=== PATIENT | male | born 1965 | race Caucasian/White ===

== ENCOUNTER 2018-10-08 01:49 | Emergency (ER) | payer SELFPAY ==
[~2018-10-08] VITALS: Ht 175.3 cm; Wt 99.8 kg
--- OUTSIDE RECORDS SUMMARY | ~2018-10-08 | XMS | Clinical Summary ---
Demographics + + + | Address | [address] | | | [place] [address] | + + + | Home Phone | | + + + | Preferred Language | Unknown | + + + | Marital Status | Single | + + + | Spiritism Affiliation | 1013 | + + + | Race | Unknown | + + + | Ethnic Group | Unknown | + + + Author + + + | Author | [facility] | + + + | Organization | [facility] | + + + | Address | Unknown | + + + | Phone | Unavailable | + + + Support + + + + + | Name | Relationship | Address | Phone | + + + + + | Yolis Grey | ECON | [address] | | | | | [place] [address] | | + + + + + Care Team Providers + +------+ + | Care Public Services Librarian Name | Role | Phone | + +------+ + | Amador Delgado DO | PP | | + +------+ + Allergies No Known Allergies Current Medications + + +---------+---------+------+------+-------+ | Prescription | Sig. | Disp. | Refills | Star | End | Statu | | | | | | t | Date | s | | | | | | Date | | | + + +---------+---------+------+------+-------+ | metFORMIN | Take 500 mg by mouth | | | | | Activ | | (GLUCOPHAGE) 1000 MG | daily with | | | | | e | | tablet | breakfast. | | | | | | + + +---------+---------+------+------+-------+ | omeprazole | Take 20 mg by mouth | | | | | Activ | | (PRILOSEC) 20 MG | every morning before | | | | | e | | capsuleIndications: | breakfast. | | | | | | | Heartburn | | | | | | | + + +---------+---------+------+------+-------+ | aspirin 81 MG | Take 81 mg by mouth | | | | | Activ | | tablet | daily. | | | | | e | + + +---------+---------+------+------+-------+ | pioglitazone | Take 15 mg by mouth | | | | | Activ | | (ACTOS) 15 MG tablet | daily. | | | | | e | + + +---------+---------+------+------+-------+ | nitroGLYCERIN | Place 1 tablet under | 25 | 3 | 01/0 | | Activ | | (NITROSTAT) 0.4 MG | the tongue every 5 | tablet | | 8/20 | | e | | SL tablet | (five) minutes as | | | 18 | | | | | needed for Chest | | | | | | | | pain. | | | | | | + + +---------+---------+------+------+-------+ | metoprolol | Take 1 tablet by | 30 | 11 | 02/0 | | Activ | | (TOPROL-XL) 25 MG 24 | mouth daily. | tablet | | 5/20 | | e | | hr tablet | | | | 18 | | | + + +---------+---------+------+------+-------+ | furosemide (LASIX) | Take 1 tablet by | 30 | 11 | 02/0 | | Activ | | 20 MG tablet | mouth daily. | tablet | | 5/20 | | e | | | | | | 18 | | | + + +---------+---------+------+------+-------+ | potassium chloride | Take 1 capsule by | 30 | 11 | 02/0 | | Activ | | (MICRO-K) 10 MEQ CR | mouth daily. | capsule | | 5/20 | | e | | capsule | | | | 18 | | | + + +---------+---------+------+------+-------+ Active Problems + + + | Problem | Noted Date | + + + | OAB (overactive bladder) | 10/10/2015 | + + + | Urethral stricture | 10/10/2015 | + + + | UTI (urinary tract infection) | 09/06/2015 | + + + | Dysuria | 09/06/2015 | + + + | Gross hematuria | 06/18/2015 | + + + | CAD (coronary artery disease) | 11/16/2014 | + + + + + | Last Assessment & Plan: CAD s/p PCI to [facility] reports chest | | discomfort- can be related to poorly controlled HTN vs | | progression of CADBP - not well controlled- related to non | | compliance, OSAHe claims compliance to ASA, Plavix, StatinHe is | | having difficulty to take PM pills because of sleep patternHis | | Lisinopril/HCTZ was stopped by Dr. Jalloh??BP now not well | | controlled- only on Coreg 12.5mg [id number] add Amlodipine 5mg | | dailyHe will continue to check his BP at home and will | | reportDiscussed importance of weight loss, diet, exercise, | | lifestyle changesStopped ETOHWill do Stress MPI and echoF/u after | | testsStressed importance of medication compliance- having alarm | | to remind He is also now reporting blood in urine for which he | | might need urology work up- he will see urology in | | advised him to continue ASA, Plavix for now and not miss any | | dosesReturn after stress and echo. | |Return after stress and echo. | | | + + + + + | Chest pain | 09/14/2014 | + + + + + | Last Assessment & Plan: Angina- chest pressure, dyspnea on | | exertion With risk factors- HTN, HLD, Obesity, Family history of | | Early CAD- aneurysm- father in 40sBP control improvedBP numbers | | from home shows improved numbersDiscussed with him the management | | options including medical management- role of stress testing, | | coronary angiogram- he opts for coronary angiogram after | | considering- risks, benefits and alternatives- he verbally | | expressed understanding of the risks and procedure- Because of | | his significant family history and past history of cocaine use- | | his age and living in a remote location and severity of symptoms | | will proceed with coronary angiogramEcho shows normal LV systolic | | functionF/u after test. | + + +---------+ + | Dyspnea | 09/14/2014 | +---------+ + + + | Last Assessment & Plan: Could be secondary to Hypertensive | | cardiomyopathyWill re-evaluate when BP is better controlled.2D | | echo. | + + + + + | HTN (hypertension) | 09/14/2014 | + + + + + | Last Assessment & Plan: Well controlled. | | Reports low BP after PCI and is not tolerating Bystolic will hold | | He will continue to maintain BP log at home. | + + +---------+ + | Obesity | 09/14/2014 | +---------+ + Family History + + +------+ + | Medical History | Relation | Name | Comments | + + +------+ + | Aneurysm | Father | | | + + +------+ + + +------+ + + | Relation | Name | Status | Comments | + +------+ + + | Father | | | brain aneurysm | | | | (Age | | | | | 49) | | + +------+ + + | Maternal Grandfather | | Alive | | + +------+ + + | Maternal Grandmother | | Alive | | + +------+ + + | Mother | | | gastrointestinal | + +------+ + + | Paternal Grandfather | | | unknown status | + +------+ + + | Paternal Grandmother | | | unknown status | + +------+ + + | Son | 26 | | | + +------+ + + | Son | 24 | | | + +------+ + + Social History + +-------+ +--------+------+ | Tobacco Use | Types | Packs/Day | Years | Date | | | | | Used | | + +-------+ +--------+------+ | Never Smoker | | | | | + +-------+ +--------+------+ + +---+---+---+ | Smokeless Tobacco: | | | | | Never Used | | | | + +---+---+---+ + + +---------+ + | Alcohol Use | Drinks/We | oz/Week | Comments | | | ek | | | + + +---------+ + | Yes | | | rarely | + + +---------+ + + + + | Sex Assigned at | Date Recorded | | | | + + + | Not on file | | + + + Last Filed Vital Signs + + + + | Vital Sign | Reading | Time Taken | + + + + | Blood Pressure | 130/80 | 08/17/2017 10:02 AM PST | + + + + | Pulse | 89 | 08/17/2017 10:02 AM PST | + + + + | Temperature | 36.3 C (97.3 F) | 03/19/2016 2:25 PM PDT | + + + + | Respiratory Rate | 20 | 08/17/2017 10:02 AM PST | + + + + | Oxygen Saturation | 95% | 08/17/2017 10:02 AM PST | + + + + | Inhaled Oxygen | - | - | | Concentration | | | + + + + | Weight | 122 kg (269 lb) | 08/17/2017 10:02 AM PST | + + + + | Height | 172.7 cm (5' 8") | 08/17/2017 10:02 AM PST | + + + + | Body Mass Index | 40.9 | 08/17/2017 10:02 AM PST | + + + + Plan of Treatment + + + + + | Health Maintenance | Due Date | Last Done | Comments | + + + + + | Vaccine: | | | | | Dtap/Tdap/Td (1 - | 5 | | | | Tdap) | | | | + + + + + | Vaccine: | | | | | Pneumococcal 19-64 | 5 | | | | (PPSV23 only) Medium | | | | | Risk (1 of 1 - | | | | | PPSV23) | | | | + + + + + | Colon Cancer | | | | | Screening | 6 | | | | (Colonoscopy) | | | | + + + + + | Vaccine: Zoster (1 | | | | | of 2) | 6 | | | + + + + + | Statin Therapy | | | | | (optimal intensity) | 7 | | | + + + + + | Vaccine: Influenza | | | | | (#1) | 8 | | | + + + + + Results Not on filefrom Last 3 Months Insurance + +--------+ +------+-------+---------+ | Payer | Benefi | Subscriber | Type | Phone | Address | | | t Plan | ID | | | | | | / | | | | | | | Group | | | | | + +--------+ +------+-------+---------+ | [employer] | ODS | [id number] | | | | | | HEALTH | | | | | | | PLAN | | | | | + +--------+ +------+-------+---------+ + +--------+ +--------+ + + | Guarantor Name | Accoun | Relation to | Date | Phone | Billing Address | | | t Type | Patient | of | | | | | | | | | | + +--------+ +--------+ + + | RANDALL RAMSEY | Person | Self [birth year] | Home: | [address] | | [address] [place] | al/Fam | | 1966 | [phone] | [place] [address] | | | ha | | | [address] | | + +--------+ +--------+ + +
--- OUTSIDE RECORDS SUMMARY | ~2018-10-08 | XMS | Clinical Summary ---
Demographics + + + | Address | [address] | | | [place] [address] | + + + | Home Phone | | + + + | Preferred Language | Unknown | + + + | Marital Status | Single | + + + | Anglican Affiliation | CHR | + + + | Race | White | + + + | Ethnic Group | Not or | + + + Author + + + | Author | [facility] | + + + | Organization | [facility] | + + + | Address | Unknown | + + + | Phone | Unavailable | + + + Support + + +---------+ + | Name | Relationship | Address | Phone | + + +---------+ + | DEE MAXWELL | ECON | Unknown | | + + +---------+ + Care Team Providers + +------+ + | Care Pasting Machine Operator Name | Role | Phone | + +------+ + | Amador Delgado DO | PP | | + +------+ + Source Comments PASCALE is fully live on both [facility] Ambulatory and [facility] InPatient.[facility] Allergies No Known Allergies Current Medications + + +---------+---------+------+------+-------+ | Prescription | Sig. | Disp. | Refills | Star | End | Statu | | | | | | t | Date | s | | | | | | Date | | | + + +---------+---------+------+------+-------+ | lisinopril 10 mg | Take 10 mg by mouth | | | | | Activ | | oral tablet | once daily. | | | | | e | + + +---------+---------+------+------+-------+ | metFORMIN 1,000 mg | Take 1,000 mg by | | | | | Activ | | oral tablet | mouth two times | | | | | e | | | daily. | | | | | | + + +---------+---------+------+------+-------+ | omeprazole 20 mg | Take 20 mg by mouth | | | | | Activ | | oral capsule,delayed | as needed. | | | | | e | | release(DR/EC) | | | | | | | + + +---------+---------+------+------+-------+ | nitroglycerin 0.4 | Take 0.4 mg by mouth | | | 04/2 | | Activ | | mg sublingual | every five minutes | | | 1/20 | | e | | tablet, sublingual | as needed. | | | 15 | | | + + +---------+---------+------+------+-------+ | glipiZIDE 10 mg | Take 10 mg by mouth | | | | | Activ | | oral tablet | two times daily. | | | | | e | + + +---------+---------+------+------+-------+ | aspirin EC 81 mg | Take 81 mg by mouth | | | | | Activ | | oral tablet,delayed | once daily. | | | | | e | | release (DR/EC) | | | | | | | + + +---------+---------+------+------+-------+ | pioglitazone 30 mg | Take 30 mg by mouth | | | | | Activ | | oral tablet | once daily. | | | | | e | + + +---------+---------+------+------+-------+ | senna-docusate | Take 1 tablet by | 60 | 0 | 04/2 | | Activ | | 8.6-50 mg oral | mouth two times | tablet | | 5/20 | | e | | tabletIndications: | daily. Indications: | | | 17 | | | | constipation | Constipation | | | | | | + + +---------+---------+------+------+-------+ | buPROPion 100 mg | Take 100 mg by mouth | | | | | Activ | | oral tablet | two times daily. | | | | | e | + + +---------+---------+------+------+-------+ | | Inhale 1 puff four | | | | | Activ | | ipratropium-albutero | times daily. | | | | | e | | l 20-100 | | | | | | | | mcg/actuation | | | | | | | | inhalation mist | | | | | | | + + +---------+---------+------+------+-------+ | lactobacillus | Take 1 capsule by | 10 | 0 | 05/1 | | Activ | | rhamnosus (GG) | mouth once daily. | capsule | | 6/20 | | e | | (CULTURELLE) oral | | | | 17 | | | | capsule | | | | | | | + + +---------+---------+------+------+-------+ | oxyCODONE | Take 1-3 tablets by | 40 | 0 | 05/1 | | Activ | | (immediate release) | mouth every three | tablet | | 6/20 | | e | | 5 mg oral | hours as needed for | | | 17 | | | | tabletIndications: | moderate pain. | | | | | | | Pain | Indications: Pain | | | | | | + + +---------+---------+------+------+-------+ | polyethylene | Mix 17 g and take | 527 g | 0 | 05/1 | | Activ | | glycol 17 gram/dose | orally once daily. | | | 6/20 | | e | | oral | | | | 17 | | | | powderIndications: | | | | | | | | Scrotal edema | | | | | | | + + +---------+---------+------+------+-------+ | oxyCODONE | Take 1 to 3 tablets | 50 | 0 | 05/1 | | Activ | | (immediate release) | by mouth every three | tablet | | 6/20 | | e | | 5 mg oral | hours as needed for | | | 17 | | | | tabletIndications: | moderate pain. | | | | | | | Pain | Indications: Pain | | | | | | + + +---------+---------+------+------+-------+ | oxybutynin 5 mg | Take 1 tablet by | 50 | 0 | 05/1 | | Activ | | oral | mouth three times | tablet | | 6/20 | | e | | tabletIndications: | daily as needed | | | 17 | | | | overactive bladder | (bladder spams). | | | | | | | | Indications: Bladder | | | | | | | | Hyperactivity | | | | | | + + +---------+---------+------+------+-------+ Active Problems + + + | Problem | Noted Date | + + + | Scrotal edema | 11/19/2016 | + + + Social History + +-------+ +--------+------+ | Tobacco Use | Types | Packs/Day | Years | Date | | | | | Used | | + +-------+ +--------+------+ | Never Smoker | | | | | + +-------+ +--------+------+ + + +---------+ + | Alcohol Use | Drinks/We | oz/Week | Comments | | | ek | | | + + +---------+ + | Yes | | | 1-2 beers a month | + + +---------+ + + + + | Sex Assigned at | Date Recorded | | | | + + + | Not on file | | + + + Last Filed Vital Signs + + + + | Vital Sign | Reading | Time Taken | + + + + | Blood Pressure | 149/93 | 12/09/2016 10:16 AM PDT | + + + + | Pulse | 105 | 12/09/2016 10:16 AM PDT | + + + + | Temperature | 36.8 C (98.2 F) | 11/24/2016 11:08 PM PDT | + + + + | Respiratory Rate | 16 | 11/24/2016 7:08 PM PDT | + + + + | Oxygen Saturation | 98% | 11/24/2016 11:08 PM PDT | + + + + | Inhaled Oxygen | - | - | | Concentration | | | + + + + | Weight | 122 kg (269 lb) | 12/09/2016 10:16 AM PDT | + + + + | Height | 175.3 cm (5' 9") | 12/09/2016 10:16 AM PDT | + + + + | Body Mass Index | 39.72 | 12/09/2016 10:16 AM PDT | + + + + Plan of Treatment + + + + + | Health Maintenance | Due Date | Last Done | Comments | + + + + + | Influenza (Flu) | | | | | vaccination (#1) | 8 | | | + + + + + Implants + +------+------+ +--------+--------+--------+ | Implanted | Type | Area | Manufacture | Device | Expira | Model | | | | | r | | tion | / | | | | | | Identi | Date | Serial | | | | | | fier | | / Lot | + +------+------+ +--------+--------+--------+ | Kit Tissue Closure Artiss | | | [employer] | | 05/12/ | [id number] | | Frozen Sealant 4ml - | | | HEALTHCARE | | 2018 | 2 / | | [id number]: Qty: 1 on | | | | | | /[id number] | | 11/03/2016 by Manohar Banks | | | | | | 138 | | DMD | | | | | | | + +------+------+ +--------+--------+--------+ Results Not on filefrom Last 3 Months Insurance + +--------+ +--------+-------+---------+ | Payer | Benefi | Subscriber | Type | Phone | Address | | | t Plan | ID | | | | | | / | | | | | | | Group | | | | | + +--------+ +--------+-------+---------+ | FRUIT FARMWORKER MEDICAID | FRUIT FARMWORKER | xxxxxxxx | Medica | | | | | [place] | | id | | | | | [place] | | | | | + +--------+ +--------+-------+---------+ + +--------+ +--------+ + + | Guarantor Name | Accoun | Relation to | Date | Phone | Billing Address | | | t Type | Patient | of | | | | | | | | | | + +--------+ +--------+ + + | RANDALL RAMSEY | Person | Self [birth year] | Home: | [address] | | [place] | al/Fam | | 1966 | [phone] | [place] [address] | | | ha | | | [address] | | + +--------+ +--------+ + +
--- OUTSIDE RECORDS SUMMARY | ~2018-10-08 | XMS | Clinical Summary ---
Demographics + + + | Address | [address] | | | [place] [address] | + + + | Home Phone | | + + + | Preferred Language | Unknown | + + + | Marital Status | Single | + + + | Quaker Affiliation | Unknown | + + + | Race | Unknown | + + + | Ethnic Group | Unknown | + + + Author + + + | Author | [facility] | | | and [place] | + + + | Organization | [facility] | | | and [place] | + + + | Address | Unknown | + + + | Phone | Unavailable | + + + Support + + +---------+ + | Name | Relationship | Address | Phone | + + +---------+ + | Cheyenne Vasquez | ECON | Unknown | | + + +---------+ + | Mario Julio | Unknown | | + + +---------+ + Care Team Providers + +------+ + | Care Bronze Plater Name | Role | Phone | + +------+ + | Amador Delgado DO | PP | | + +------+ + Allergies No Known Allergies Current Medications + + +-------+---------+------+------+-------+ | Prescription | Sig. | Disp. | Refills | Star | End | Statu | | | | | | t | Date | s | | | | | | Date | | | + + +-------+---------+------+------+-------+ | metFORMIN | Take 500 mg by mouth | | | | | Activ | | (GLUCOPHAGE) 500 mg | 2 times daily (with | | | | | e | | tablet | breakfast & | | | | | | | | dinner). | | | | | | + + +-------+---------+------+------+-------+ | lisinopril | Take 10 mg by mouth | | | | | Activ | | (PRINIVIL, ZESTRIL) | Daily. | | | | | e | | 10 mg tablet | | | | | | | + + +-------+---------+------+------+-------+ | | Take by mouth. | | | | | Activ | | Pseudoephedrine-Acet | | | | | | e | | aminophen (SM | | | | | | | | NON-ASPRIN SINUS PO) | | | | | | | + + +-------+---------+------+------+-------+ | pantoprazole | Take 40 mg by mouth | | | | | Activ | | (PROTONIX) 40 mg | every morning | | | | | e | | tablet | (before breakfast). | | | | | | + + +-------+---------+------+------+-------+ | UNABLE TO FIND | Med Name: Resmed | | | | | Activ | | | AirSense 10 autoset | | | | | e | | | CPAP: 10-20cm | | | | | | + + +-------+---------+------+------+-------+ | aspirin 81 mg EC | Take 81 mg by mouth | | | | | Activ | | tablet | Daily. | | | | | e | + + +-------+---------+------+------+-------+ Active Problems + + + | Problem | Noted Date | + + + | MAGDALENO (obstructive sleep apnea) | | + + + | HBP (high blood pressure) | | + + + | Gastroesophageal reflux disease | | + + + | Obesity | | + + + | CAD (coronary artery disease) | | + + + | Delayed sleep phase syndrome | | + + + | Diabetes mellitus (HCC) | | + + + Family History + +------+ + + | Relation | Name | Status | Comments | + +------+ + + | Daughter | | Alive | | + +------+ + + | Father | | | Brain aneurysm | | | | (Age | | | | | 50) | | + +------+ + + | Mother | | | Unknown - parasite infection (missionary in | | | | (Age | Ban) | | | | 70's) | | + +------+ + + | Sister | | Alive | | + +------+ + + | Sister | | Alive | | + +------+ + + | Son | | Alive | | + +------+ + + | Son | | Alive | | + +------+ + + Social [...] +---------+ + | Yes | | | Rare | + + +---------+ + + + + | Sex Assigned at | Date Recorded | | | | + + + | Not on file | | + + + Last Filed Vital Signs + + + + | Vital Sign | Reading | Time Taken | + + + + | Blood Pressure | 184/94 | 08/31/2017 1357 PST | + + + + | Pulse | 93 | 08/31/2017 1357 PST | + + + + | Temperature | 36.6 C (97.9 F) | 11/19/2016138 PDT | + + + + | Respiratory Rate | 18 | 08/31/20171356 PST | + + + + | Oxygen Saturation | 98% | 08/31/20171356 PST | + + + + | Inhaled Oxygen | - | - | | Concentration | | | + + + + | Weight | 125.1 kg (275 lb | 08/31/20171356 PST | | | 12.7 oz) | | + + + + | Height | 175.3 cm (5' 9") | 08/31/20171356 PST | + + + + | Body Mass Index | 40.73 | 08/31/2017 1357 PST | + + + + Plan of Treatment + + + + + | Health Maintenance | Due Date | Last Done | Comments | + + + + + | Diabetic Eye Exam | | | | | | 4 | | | + + + + + | Diabetic Foot Exam | | | | | | 4 | | | + + + + + | Hemoglobin A1c Q3 | | | | | Months | 4 | | | + + + + [...] | | | | (optimal intensity) | 5 | | | + + + + + | Colorectal Cancer | | | | | Screening [...] Not on filefrom Last 3 Months Insurance +-------+--------+ +------+ + + | Payer | Benefi | Subscriber | Type | Phone | Address | | | t Plan | ID | | | | | | / | | | | | | | Group | | | | | +-------+--------+ +------+ + + | MODA | MODA | [id number] | PPO | [phone] | [address] [address] | | | [place] | | | [address] | [place] [address] | | | [place] | | | | | | | [place] | | | | | +-------+--------+ +------+ + + + +--------+ +--------+ + + | Guarantor Name | Accoun | Relation to | Date | Phone | Billing Address | | | t Type | Patient | of | | | | | | | | | | + +--------+ +--------+ + + | RANDALL RAMSEY | Person | Self | [birth year] | Home: | [address] | | [address] | [place] | | 1966 | [phone] | [place] [address] | | | ha | | | [address] | | + +--------+ +--------+ + +
--- OUTSIDE RECORDS SUMMARY | ~2018-10-08 | XMS | Clinical Summary ---
Demographics + + + | Address | [address] | | | [place] [address] | + + + | Home Phone | | + + + | Preferred Language | Unknown | + + + | Marital Status | Single | + + + | Sabianist Affiliation | Unknown | + + + | Race | Unknown | + + + | Ethnic Group | Unknown | + + + Author + + + | Author | [facility] | | | and [place] | + + + | Organization | [facility] | | | and [place] | [...] Team Providers + +------+ + | Care Supervisor Carding Name | Role | Phone | + [...] + + | MODA | MODA | [id number] | PPO | [phone] | [address] [address] | | | [place] | | | [address] | [place] [address] | | | [place] | | | [...] | 1966 | [phone] | [place] [address] | | | ha | | | [address] | | + +--------+ +--------+ + +
--- OUTSIDE RECORDS SUMMARY | ~2018-10-08 | XMS | Clinical Summary ---
Demographics + + + | Address | [address] | | | [place] [address] | + + + | Home Phone | | + + + | Preferred Language | Unknown | + + + | Marital Status | Single | + + + | Gnosticism Affiliation | 1013 | + + + | Race | Unknown | + + + | Ethnic Group | Unknown | + + + Author + + + | Author | [facility] | + + + | Organization | [facility] | + + + | Address | Unknown | + + + | Phone | Unavailable | + + + Support + + + + + | Name | Relationship | Address | Phone | + + + + + | Yolis Grey | ECON | [address] | | | | | [place] [address] | | + + + + + Care Team Providers + +------+ + | Care Live Source Operator Name | Role | Phone | [...] | | controlled- only on Coreg 12.5mg [id number] add Amlodipine 5mg | | dailyHe will [...] | [employer]AN | ODS | [id number] | | | | | | HEALTH [...] Self | [birth year] | Home: | [address] | | [place] | al/Fam | | 1966 | [phone] | [place] [address] | | | ha | | | [address] | | + +--------+ +--------+ + +
--- OUTSIDE RECORDS SUMMARY | ~2018-10-08 | XMS | Clinical Summary ---
Demographics + + + | Address | [address] | | | [place] [address] | + + + | Home Phone | | + + + | Preferred Language | Unknown | + + + | Marital Status | Single | + + + | Anabaptism Affiliation | CHR | + + + [...] Team Providers + +------+ + | Care Maintenance Fitter Name | Role | Phone | + +------+ + | Amador Delgado DO | PP | | + +------+ + Source Comments PASCALE is fully live on both [facility] Amb[facility] and [facility] InPatient.[facility] Allergies No Known Allergies Current Medications + [...] | | [employer] | | 05/12/ | [id number] | | Frozen Sealant 4ml - | | | HEALTHCARE | | 2018 | 2 / | | [id number]: Qty: 1 on | | | | [...] | | | + +--------+ +--------+-------+---------+ | INSTRUCTIONAL DESIGN SPECIALIST MEDICAID | INSTRUCTIONAL DESIGN SPECIALIST | xxxxxxxx | Medica | | | [...] | Self | [birth year] | Home: | [address] | | [place] | al/Fam | | 1966 | [phone] | [place] [address] | | | ha | | | [address] | | + +--------+ +--------+ + +
[~2018-10-08 01:49] MED LIST: ASPIRIN EC81 MG PO; CLOPIDOGREL75 MG PO; GLUCOPHAGE1000 MG PO; KEFLEX500 MG PO; LISINOPRIL-HCT1 EACH PO; NAPROXEN500 MG PO; NITROSTAT0.4 MG SL; NYSTATIN15 GM TOP
[2018-10-08] MEDS ORDERED: CEPHALEXIN500 MG PO (02:16)
[2018-10-08] MEDS ORDERED: BACTRIM DS TAB1 EACH PO (02:16)
== END 2018-10-08 02:30 | disposition home or self-care (01) ==
LOC: ED 01:49
DX: L03.211 Cellulitis of face (principal); E11.9 Type 2 diabetes mellitus without complications; I25.2 Old myocardial infarction
CPT/HCPCS: 99283

== ENCOUNTER 2023-02-15 22:07 | Emergency (ER) | payer OTHER ==
[~2023-02-15] VITALS: Ht 175.3 cm; Wt 91.6 kg
[~2023-02-15 22:07] MED LIST changes: +BACTRIM DS TAB1 EACH PO; +CEPHALEXIN500 MG PO
[2023-02-15] MEDS ORDERED: IBU600 MG PO (23:31)
[2023-02-15] MEDS ORDERED: CLEOCIN HCL300 MG PO (23:31)
[2023-02-15 23:43] VITALS: BP 148/93
== END 2023-02-15 23:45 | disposition home or self-care (01) ==
LOC: ED 22:07
DX: K04.7 Periapical abscess without sinus (principal); E11.65 Type 2 diabetes mellitus with hyperglycemia; I25.2 Old myocardial infarction
CPT/HCPCS: 36415; 70486; 80053; 85025; J1885

== ENCOUNTER 2024-08-22 23:49 | Emergency (ER) | payer OTHER ==
[~2024-08-22] VITALS: Ht 175.3 cm; Wt 95.7 kg
[~2024-08-22 23:49] MED LIST changes: +CLEOCIN HCL300 MG PO; +IBU600 MG PO
[2024-08-23] MEDS ORDERED: PROMETHAZINE HCL 50 MG/ML SDV IM ONE (00:15)
[2024-08-23] MEDS ORDERED: KETOROLAC TROMETHAMINE 30 MG/ML VIAL IM ONE (00:15)
[2024-08-23] MEDS ORDERED: Insulin Regular, Human 100 UNIT/ML ML SUB-Q ONE (00:15)
[2024-08-23] MEDS ORDERED: AMOXICILLIN/CLAVULANATE K 875 MG TAB PO ONE (00:15)
[2024-08-23] MEDS ORDERED: TRAMADOL HCL50 MG PO (00:24)
[2024-08-23] MEDS ORDERED: AMOX TR-K CLV1 EAC1 PO (00:24)
[2024-08-23 01:05] VITALS: BP 127/84
== END 2024-08-23 01:07 | disposition home or self-care (01) ==
LOC: ED 23:49
DX: L03.211 Cellulitis of face (principal); L73.9 Follicular disorder, unspecified; E11.9 Type 2 diabetes mellitus without complications; I25.10 Atherosclerotic heart disease of native coronary artery without angina pectoris; I25.2 Old myocardial infarction
CPT/HCPCS: 96372; 99283; J1815; J1885; J2550

== ENCOUNTER 2024-09-24 00:33 | Emergency (ER) | payer OTHER ==
[~2024-09-24] VITALS: Ht 175.3 cm; Wt 95.0 kg
[~2024-09-24 00:33] MED LIST changes: +AMOX TR-K CLV1 EAC1 PO; +TRAMADOL HCL50 MG PO
[2024-09-24] MEDS ORDERED: MORPHINE SULFATE 4 MG/ML VIAL IV ONE (01:00)
[2024-09-24] MEDS ORDERED: DEXAMETHASONE SOD PHOS 10 MG/ML VIAL IV ONE (01:00)
[2024-09-24 01:01] LABS: BASOPHILS 0.4 % (0-2); EOSINOPHILS 1.3 % (0-6); HEMATOCRIT 41.9 % (35.0-50.0); HEMOGLOBIN 14.4 g/dL (12.0-18.0); LYMPHOCYTES 24.2 % (24-44); MCH 31.8 (27-36); MCHC 34.5 g/dl (30-36); MCV 92.1 fl (81-99); MONOCYTES 8.4 % (0-12); NEUTROPHILS 65.7 % (39-80); PLATELET COUNT 163 K/uL (140-440); RBC 4.55 M/ul (4.3-5.7); RDW 13.1 (10.5-15.0)
[2024-09-24 01:20] LABS: ALBUMIN 3.5 g/dL (3.4-5.0); ALBUMIN/GLOBULIN RATIO 0.95 (1.1-2.4); ANION GAP 13.9 (7-21); BILIRUBIN, TOTAL 0.4 mg/dL (0.2-1.0); BUN/CREATININE RATIO 13.27 (6.0-28.6); CALCIUM 8.5 mg/dL (8.5-10.1); CREATININE, SERUM 1.13 mg/dL (0.70-1.30); POTASSIUM 3.9 mmol/L (3.5-5.1); PROTEIN, TOTAL 7.2 g/dL (6.4-8.2)
[2024-09-24] MEDS ORDERED: Insulin Regular, Human 100 UNIT/ML ML SUB-Q ONE (01:30)
[2024-09-24] MEDS ORDERED: LACTATED RINGER'S 1,000 ML IV ONE (01:30)
[2024-09-24] MEDS ORDERED: BACTRIM DS TAB1 EACH PO (02:28)
[2024-09-24] MEDS ORDERED: HYDROCODON-ACE1 EA10 PO (02:28)
[2024-09-24] MEDS ORDERED: GLIPIZIDE ER5 MG PO (02:29)
[2024-09-24] MEDS ORDERED: METFORMIN HCL500 M1 PO (02:29)
[2024-09-24] MEDS ORDERED: HYDROCODONE BIT/ACETAMINOPHEN 5/325 MG 1 TAB HOME.PACK PO ONE (02:30)
[2024-09-24] MEDS ORDERED: DOXYCYCLINE HYCLATE 100 MG HOME.PACK PO ONE (02:30)
[2024-09-24] MEDS ORDERED: TRIMETHOPRIM/SULFAMETHOXAZOLE 1 EA HOME.PACK PO ONE (02:30)
[2024-09-24] MEDS ORDERED: PREDNISONE20 MG PO (02:31)
[2024-09-24 02:53] VITALS: BP 151/87
== END 2024-09-24 02:55 | disposition home or self-care (01) ==
LOC: ED 00:33
PROVIDERS: Family Medicine
DX: L03.213 Periorbital cellulitis (principal); M72.2 Plantar fascial fibromatosis; E11.65 Type 2 diabetes mellitus with hyperglycemia; I25.2 Old myocardial infarction
CPT/HCPCS: 36415; 70487; 80053; 82010; 82803; 85025; 99284-25; A9270; J1100; J1815; J7121; Q9967

== ENCOUNTER 2025-04-01 14:40 | Emergency (ER) | payer OTHER ==
[~2025-04-01] VITALS: Ht 175.3 cm; Wt 87.0 kg
[~2025-04-01 14:40] MED LIST changes: +GLIPIZIDE ER5 MG PO; +HIBICLENS118 ML TOP; +HYDROCODON-ACE1 EA10 PO; +METFORMIN HCL500 M1 PO; +PREDNISONE20 MG PO; +VALTREX1000 MG PO
[2025-04-01] MEDS ORDERED: ASPIRIN 81 MG CHEW PO ONE (15:15)
[2025-04-01 15:29] LABS: BASOPHILS 0.4 % (0.2-1.2); EOSINOPHILS 3.0 % (0.8-7.0); LYMPHOCYTES 22.7 % (21.8-53.1); MCH 31.0 PG (25.7-32.2); MCHC 34.4 g/dL (32.3-36.5); MCV 90.0 fL (79.0-92.2); MONOCYTES 12.2 % (5.3-12.2); NEUTROPHILS 61.2 % (34.0-67.9); RBC 4.52 M/uL (4.63-6.08)
[2025-04-01] MEDS ORDERED: AZITHROMYCIN250 MG PO (15:35)
[2025-04-01 15:48] LABS: ALT (SGPT) 19.0 U/L (14-59); AST (SGOT) 13.0 U/L (15-37); GLOMERULAR FILTRATION RATE,EST 88.0 mL/min (>60); PROTEIN, TOTAL 7.5 g/dL (6.4-8.2); UREA NITROGEN 20.0 mg/dL (7-18)
[2025-04-01 19:03] VITALS: BP 121/82
[2025-04-01] MEDS ORDERED: CEPHALEXIN500 M1 PO (19:11)
[2025-04-01] MEDS ORDERED: BACTRIM DS TAB1 EACH PO (19:11)
--- NOTE | 2025-04-03 21:51 | EKG ---
[facility] [address] [facility] [place] [address] Signed Normal sinus rhythm Normal ECG No previous ECGs available Confirmed by Aletha Hanley MD () on 04/03/2025 9:50:46 PM Electronically Signed By: ALETHA HANLEY MD 04/03/252150 PATIENT NAME: LEEANN RAMSEY Electrocardiogram DATE OF : 65 PHYSICIAN: ALETHA HANLEY MD REPORT #: [id number] REPORT IS CONFIDENTIAL AND NOT TO BE RELEASED WITHOUT AUTHORIZATION
== END 2025-04-01 20:30 | disposition home or self-care (01) ==
LOC: ED 14:40
PROVIDERS: Emergency Medicine
DX: L02.01 Cutaneous abscess of face (principal); L03.211 Cellulitis of face; R07.1 Chest pain on breathing; I25.2 Old myocardial infarction; Z79.2 Long term (current) use of antibiotics
CPT/HCPCS: 10060; 36415; 70491; 71045; 71260; 80053; 83605; 83735; 84484; 85025; 93005; 93010; 96365; 99285-25; A9270; J0696; Q9967